=== PATIENT | male | born 1965 | race Caucasian/White ===

== ENCOUNTER 2021-02-23 09:20 | Emergency (ER) | payer OTHER ==
[~2021-02-23] VITALS: Ht 170.2 cm; Wt 68.0 kg
[2021-02-23 10:29] LABS: HEMOGLOBIN 14.5 gm/dl (14.0-17.5); RED BLOOD COUNT 4.63 M/UL (4.20-5.50); WHITE BLOOD COUNT 3.5 K/UL (4.5-11.0)
[2021-02-23 10:53] LABS: BUN/CREATININE RATIO 14 (0-10)
[2021-02-23] MEDS ORDERED: DELSYM30 MG/5 ML PO (11:54)
[2021-02-23] MEDS ORDERED: ZOFRAN4 MG PO (11:54)
== END 2021-02-23 14:00 | disposition home or self-care (01) ==
LOC: ER1 09:20
PROVIDERS: Physician Assistant Medical
DX: Z23 Encounter for immunization (principal); U07.1 COVID-19; I10 Essential (primary) hypertension; Z79.899 Other long term (current) drug therapy; E03.9 Hypothyroidism, unspecified
CPT/HCPCS: 71045; 80053; 85025; 93005; 96374; 99284; J2405; J7030; M0243; U0002